=== PATIENT | female | born 1945 | race Caucasian/White ===

== ENCOUNTER 2016-09-09 17:42 | Emergency (ER) | payer MEDICARE, OTHER ==
[~2016-09-09] VITALS: Ht 167.6 cm; Wt 48.5 kg
[2016-09-09] MEDS ORDERED: eye drop (18:13)
[2016-09-09] MEDS ORDERED: TYLE325T5 PO (18:13)
[2016-09-09] MEDS ORDERED: SIMV40TA2 PO (18:13)
--- NOTE | 2016-09-09 20:32 | REP ---
Clinical: Trauma. Technique: AP, lateral, bilateral oblique views of the right elbow. Findings: Significant soft tissue swelling and elevation of the fat pad suggest the possibility of occult injury. No obvious acute fracture or dislocation identified. Impression: Soft tissue swelling and elevation of the fat pad suggesting occult injury. No obvious acute fracture. Signed by Ramakrishna Randolph MD 09/09/2016 08:23 P
[2016-09-09 20:51] VITALS: BP 109/63
--- NOTE | 2016-09-13 01:38 | REP ---
Clinical: Trauma. Technique: AP and lateral views of the right forearm. Findings: Age-related osteopenia and degenerative changes are appreciated. Soft tissue swelling about the elbow noted including elevation of the fat pad. No obvious acute fracture or dislocation. Impression: Elbow swelling and elevation of the fat pad suggesting occult injury. No obvious acute fracture or dislocation. Signed by Ramakrishna Randolph MD 09/13/2016 01:31 A
== END 2016-09-09 21:05 | disposition home or self-care (01) ==
LOC: M ED 17:42
DX: M25.421 Effusion, right elbow (principal); W10.1XXA Fall (on)(from) sidewalk curb, initial encounter; Y92.480 Sidewalk as the place of occurrence of the external cause; Y93.01 Activity, walking, marching and hiking; Y99.8 Other external cause status; Z90.79 Acquired absence of other genital organ(s); Z79.899 Other long term (current) drug therapy